=== PATIENT | female | born 1970 | race Caucasian/White ===

== ENCOUNTER → 2019-12-09 11:24 | Outpatient (BNVA) | payer OTHER, SELFPAY | PROVIDERS: Family Provider Nurse Practitioner Family; PCP Nurse Practitioner Family; Visit Provider Registered Nurse | DX: I10 Essential (primary) hypertension (principal); E78.5 Hyperlipidemia, unspecified; E66.9 Obesity, unspecified | CPT/HCPCS: 80053; 80061; 84443; 85025 ==

== ENCOUNTER 2019-12-22 14:47 | Outpatient (CLI) | payer OTHER, SELFPAY ==
--- NOTE | 2019-12-22 14:56 | MM_ITS ---
WS: [id number] BILATERAL DIGITAL SCREENING MAMMOGRAPHY WITH CAD CLINICAL INFORMATION: SCREENING HISTORY: Screening mammogram. No current complaints. COMPARISON: TECHNIQUE: Bilateral CC and MLO views. FINDINGS: Scattered fibroglandular densities bilaterally. No suspicious focal mass, asymmetry, calcifications, or architectural distortion. No evidence of malignancy. MM/[place] [id number] IMPRESSION: BI-RADS: 1-Negative FOLLOW UP: 1 Year Follow-up Recommend return to annual screening mammography.
== END 2019-12-22 14:48 | disposition home or self-care (01) ==
LOC: RADSHAW 14:52
PROVIDERS: PCP Registered Nurse; Visit Provider Nurse Practitioner Women's Health
DX: Z12.31 Encounter for screening mammogram for malignant neoplasm of breast (principal)
CPT/HCPCS: 77067

== ENCOUNTER 2019-12-29 08:43 | Day surgery (SDC) | payer OTHER, SELFPAY ==
[2019-12-25 09:33] VITALS: BMI 38.2
[2019-12-29 08:57] VITALS: BP 126/88; PULSE 88; RESP 18; TEMP 36; O2SAT 98
--- NOTE | 2019-12-29 09:03 | P.ANESASSM_ITS ---
Pre-Anesthetic Assessment Pre-Anesthetic Assessment: Height/Weight: Height 1.73 m Weight 114.305 kg Preop Diagnosis: screening Proposed Procedure: Operation Date: 12/29/19 09:45 Proposed Procedures p Colonoscopy 91938 Z12.11(Not Applicable) - John Liz MD Familial anesthetic complications: none Was Beta Dar taken within 24 hours: N/A Social: Social History: No alcohol and No tobacco Exam: Pre-Anes Outpt Exam: alert, oriented x 3, clear to auscultation bilaterally and regular rate & rhythm Airway: Submandibular: WNL Cervical ROM: WNL MP: 2 Dentition: Full Pulmonary: Pulmonary: Asthma ( mild ) CV/HEM: CV/HEM: HTN : : None reported Hepatic: Hepatic: None reported GI: GI: None reported Metabolic: Metabolic: Hyperlipidemia and Morbid obesity Musc/skel: Musc/skel: None reported Neuropsych: Neuropsych: None reported Anesthetic Plan: ASA status: 2 Anesthesia: MAC Risk of > 500 ml blood loss (7ml/kg in children): No PFSH Anesthesia PFSH: Medical History Hypertension, benign Menorrhagia with regular cycle - She has done very well with OCP therapy but due to her obesity and hypertensi on and age I do feel this time to come off the estrogen containing contraception and trial a progesterone only method. She is agreeable to this plan today. Mild intermittent asthma in adult without complication Surgical History History of laparoscopy (~1990) looking for endometriosis. Nothing was found to be abnormal. Previous section (~10/02/06) Family History Father CAD (coronary artery disease) Mother Cancer Breast cancer; dx'd at 71 y/o Grandfather Diabetes Paternal and Maternal Grandmother Stroke Paternal and Maternal Denies family history of Hyperlipidemia Hypertension Social History (Updated 12/24/19 @ 11:[address]) Smoking and tobacco status: never smoked Alcohol intake: never History of recent travel: No Female Reproductive History: Date of last menstrual period: 06/14/19 Data Anesthesia Cardiac Studies: No Data to Display
[2019-12-29 09:08] LABS: OR HCG Qualitative Urine Negative (Negative)
[2019-12-29] MEDS: sodium chloride 0.9% 1,000 ML 30 ML IV (09:10)
[2019-12-29 10:07] VITALS: BP 102/71; PULSE 89; RESP 16; TEMP 36.9; O2SAT 95
--- NOTE | 2019-12-29 10:07 | ANE.PACU2 ---
Inpatient post-anesthesia follow up: Airway intact: Yes Vital signs: Temperature 96.8 F Pulse Rate 88 Respiratory Rate 18 Blood Pressure 126/88 Pulse Oximetry 98 Oxygen Delivery Me thod Room Air Oxygen Flow Rate Fraction of Inspir ed Oxygen Hydration adequate: Yes Nausea and vomiting: No Pain level: 1 Mental status: Baseline
[2019-12-29 10:30] VITALS: BP 120/73; PULSE 90; RESP 18; O2SAT 96
--- NOTE | 2020-01-08 12:35 | W.PM.OPSFHP ---
Same Day Surgery H&P Indication for Procedure/HPI DATE OF PROCEDURE: January 08, 2020 CHIEF COMPLAINT/INDICATIONFOR SURGICAL PROCEDURE: Abdominal pain PREOP DIAGNOSIS: screening PLANNED PROCEDRUE: Operation Date: 12/29/19 09:45 Proposed Procedures p Colonoscopy 48495 Z12.11(Not Applicable) - John Liz MD Medications/Allergies* Home Medications Medication Instructions Recorded Confirmed Type albuterol sulfate 90 mcg/actuation 2 inh INHALATION QID 06/20/19 12/25/19 History breath activated powder inhaler fluticasone 250 mcg-salmeterol 50 1 inh INHALATION BID 06/20/19 12/25/19 History mcg/dose blistr powdr for inhalation levonorgestrel 20 mcg/24 hours (5 1 device INTRAUTERI .continuous 06/20/19 12/25/19 History yrs) 52 mg intrauterine device each montelukast 10 mg tablet 10 mg PO QDAY 06/20/19 12/25/19 History Allergies/Adverse Reactions Allergy/AdvReac Type Severity Reaction Status Date / Time No Known Allergies Allergy Verified 12/24/19 11:35 Pertinent History/Comorbid Conditions* Medical History (Updated 12/10/19 @ 08:17 by SAMSON Andre) Hypertension, benign Menorrhagia with regular cycle - She has done very well with OCP therapy but due to her obesity and hypertension and age I do feel this time to come off the estrogen containing contraception and trial a progesterone only method. She is agreeable to this plan today. Mild intermittent asthma in adult without complication Surgical History (Updated 06/25/19 @ 09:44 by Shantell Gabriel APN, HEATHER) History of laparoscopy (~1990) looking for endometriosis. Nothing was found to be abnormal. Previous section (~10/02/06) Family History (Updated 06/25/19 @ 09:44 by Shantell Gabriel APN, HEATHER) Diabetes Grandfather Paternal and Maternal CAD (coronary artery disease) Father Cancer Mother Breast cancer; dx'd at 71 y/o Stroke Grandmother Paternal and Maternal Denies family history of Hyperlipidemia Hypertension Social History Smoking and tobacco status: never smoked Alcohol intake: never History of recent travel: No Pertinent Exam Findings alert, oriented x 3, clear to auscultation bilaterally, regular rate & rhythm, operative site marked and procedure specific exam findings Recommendations Surgery/Procedure today Coding Level of Care Code Acute Analysis Internship for Michael Grissom
== END 2019-12-29 10:35 | disposition home or self-care (01) ==
PROVIDERS: PCP Registered Nurse; Visit Provider Internal Medicine
PROC: 0DJD8ZZ Inspection of Lower Intestinal Tract, Via Natural or Artificial Opening Endoscopic (ICD-10-PCS; CPT 45378; principal; 2019-12-29 09:45)
DX: Z12.11 Encounter for screening for malignant neoplasm of colon (principal); D12.5 Benign neoplasm of sigmoid colon; I10 Essential (primary) hypertension; Z82.49 Family history of ischemic heart disease and other diseases of the circulatory system; Z83.3 Family history of diabetes mellitus; Z80.3 Family history of malignant neoplasm of breast; E78.5 Hyperlipidemia, unspecified; E66.01 Morbid (severe) obesity due to excess calories; Z68.38 Body mass index [BMI] 38.0-38.9, adult
CPT/HCPCS: 12345; 45385; 84703; 88305; J2704; J7030

== ENCOUNTER → 2020-11-23 09:55 | Outpatient (BNVA) | payer OTHER, BC, SELFPAY | PROVIDERS: PCP Registered Nurse; Visit Provider Registered Nurse | DX: I10 Essential (primary) hypertension (principal); E66.9 Obesity, unspecified | CPT/HCPCS: 80053; 80061; 84443; 85025 ==

== ENCOUNTER 2021-01-21 14:03 | Outpatient (CLI) | payer BC, OTHER, SELFPAY ==
--- NOTE | 2021-01-21 14:14 | MM_ITS ---
WS: [id number] BILATERAL SCREENING DIGITAL MAMMOGRAM WITH CAD HISTORY: SCREENING COMPARISON: 12/22/2019 and 09/29/2015 Bilateral CC and MLO views submitted. Computer aided detection analyzed. Breast composition: There are scattered areas of fibroglandular density. No suspicious masses, microc alcifications or architectural distortion. Benign intramammary lymph nodes RIGHT breast. MM/[place] [id number] IMPRESSION: BI-RADS: 2-Benign FOLLOW UP: 1 Year Follow-up
== END 2021-01-21 14:04 | disposition home or self-care (01) ==
LOC: RADSHAW 14:11
PROVIDERS: PCP Registered Nurse; Visit Provider Nurse Practitioner Women's Health
DX: Z12.31 Encounter for screening mammogram for malignant neoplasm of breast (principal)
CPT/HCPCS: 77067

== ENCOUNTER → 2022-01-19 13:17 | Outpatient (BNVA) | payer BC, OTHER, SELFPAY | PROVIDERS: PCP Registered Nurse; Visit Provider Nurse Practitioner Family | DX: L98.9 Disorder of the skin and subcutaneous tissue, unspecified (principal) | CPT/HCPCS: 88304; 88305 ==

== ENCOUNTER → 2022-03-21 09:56 | Outpatient (BNVA) | payer BC, OTHER, SELFPAY | PROVIDERS: PCP Registered Nurse; Visit Provider Registered Nurse | DX: I10 Essential (primary) hypertension (principal); Z12.31 Encounter for screening mammogram for malignant neoplasm of breast; Z23 Encounter for immunization; Z71.85 Encounter for immunization safety counseling; Z00.00 Encounter for general adult medical examination without abnormal findings; E78.5 Hyperlipidemia, unspecified | CPT/HCPCS: 80053; 80061; 85025 ==

== ENCOUNTER 2022-04-05 10:35 | Outpatient (CLI) | payer BC, OTHER, SELFPAY ==
--- NOTE | 2022-04-05 10:40 | MM_ITS ---
WS: [id number] . BILATERAL SCREENING DIGITAL TOMOSYNTHESIS MAMMOGRAM WITH CAD HISTORY: Z12.31 - Encounter for screening mammogram for malignant ... COMPARISON: 01/21/2021 and 12/22/2019 Bilateral CC and MLO views with tomosynthesis and synthetic mammography submitted. Computer aided det ection analyzed. Breast composition: There are scattered areas of fibroglandular density. No suspicious masses, microc alcifications or architectural distortion. MM/[place] [id number] IMPRESSION: BI-RADS: 1-Negative FOLLOW UP: 1 Year Follow-up
== END 2022-04-05 10:36 | disposition home or self-care (01) ==
LOC: RAD 10:36
PROVIDERS: PCP Registered Nurse; Visit Provider Registered Nurse
DX: Z12.31 Encounter for screening mammogram for malignant neoplasm of breast (principal)
CPT/HCPCS: 77063; 77067

== ENCOUNTER → 2022-06-06 13:50 | Outpatient (BNVA) | payer BC, OTHER, SELFPAY | PROVIDERS: PCP Registered Nurse; Visit Provider Nurse Practitioner Women's Health | DX: Z12.4 Encounter for screening for malignant neoplasm of cervix (principal); Z01.419 Encounter for gynecological examination (general) (routine) without abnormal findings; Z30.431 Encounter for routine checking of intrauterine contraceptive device; N92.0 Excessive and frequent menstruation with regular cycle | CPT/HCPCS: 87624 ==

== ENCOUNTER → 2022-06-20 13:47 | Outpatient (BNVA) | payer BC, OTHER, SELFPAY | PROVIDERS: PCP Registered Nurse; Visit Provider Nurse Practitioner Women's Health | DX: Z30.431 Encounter for routine checking of intrauterine contraceptive device (principal) | CPT/HCPCS: 76830 ==

== ENCOUNTER 2023-01-15 15:43 | Outpatient (CLI) | payer BC, OTHER, SELFPAY ==
--- NOTE | 2023-01-15 16:06 | XR_ITS ---
WS: [id number] EXAMINATION: XR KUB [id number] REASON FOR EXAM: R10.11 - Right upper quadrant pain COMPARISON: None available. ORDER DATE: 01/15/2023 4:10 PM FINDINGS: There is a nonspecific colonic gas pattern with scattered fecal content and gas. There is no sign of significant small bowel dilation. No pathologic abdominal calcification is seen. An IUD is noted in the mid pelvic cavity suggested to be in satisfactory position IMPRESSION: No acute change
[2023-01-15 16:43] LABS: Basophils % 0.3 %; Eosinophils # 0.2 10^3/uL (0.0-0.8); Eosinophils % 1.6 %; Hematocrit 42.6 % (37.0-47.0); Hemoglobin 13.8 g/dL (11.5-15.3); Lymphocytes # 2.8 10^3/uL (0.8-4.8); Lymphocytes % 30.4 %; Mean Corpuscular HGB Conc 32.4 g/dL (30.0-36.0); Mean Corpuscular Hemoglobin 27.7 pg (28.0-34.0); Mean Corpuscular Volume 85.4 fl (81-99); Mean Platelet Volume 10.4 fL (7.4-10.4); Monocytes # 0.8 10^3/uL (0.2-0.9); Monocytes % 8.2 %; Neutrophils # 5.44 10^3/uL (1.8-7.7); Neutrophils % 59.2 %; Nucleated Red Blood Cells % 0 %; Platelet Count 341 10^3/cmm (130-400); Red Blood Count 4.99 10^6/uL (4.1-5.3); Red Cell Distribution Width 12.9 % (12.1-15.1); White Blood Count 9.2 10^3/uL (4.0-10.0)
[2023-01-15 17:52] LABS: C Reactive Protein 3.5 mg/L (0.0-4.9)
== END 2023-01-15 15:44 | disposition home or self-care (01) ==
LOC: LAB 15:48
PROVIDERS: PCP Registered Nurse; Visit Provider Registered Nurse
DX: R10.11 Right upper quadrant pain (principal)
CPT/HCPCS: 36415; 74018; 81000; 85025; 86140

== ENCOUNTER → 2023-03-21 09:11 | Outpatient (BNVA) | payer BC, OTHER, SELFPAY | PROVIDERS: PCP Registered Nurse; Visit Provider Registered Nurse | DX: E66.9 Obesity, unspecified; I10 Essential (primary) hypertension; Z00.00 Encounter for general adult medical examination without abnormal findings; Z13.6 Encounter for screening for cardiovascular disorders | CPT/HCPCS: 80053; 80061; 84443; 85025 ==

== ENCOUNTER → 2023-03-28 08:45 | Outpatient (BNVA) | payer BC, OTHER, SELFPAY | PROVIDERS: PCP Registered Nurse; Visit Provider Registered Nurse | DX: R73.9 Hyperglycemia, unspecified (principal) | CPT/HCPCS: 83036 ==

== ENCOUNTER 2023-04-12 10:17 | Outpatient (CLI) | payer BC, OTHER, SELFPAY ==
--- NOTE | 2023-04-12 10:00 | MM_ITS ---
WS: [id number] BILATERAL SCREENING DIGITAL TOMOSYNTHESIS MAMMOGRAM WITH CAD HISTORY: SCREENING COMPARISON: 04/05/2022 and 01/21/2021 Bilateral CC and MLO views with tomosynthesis and synthetic mammography submitted. Computer aided det ection analyzed. Breast composition: There are scattered areas of fibroglandular density. No suspicious masses, microc alcifications or architectural distortion. IMPRESSION: MM/[place] [id number] BI-RADS: 1-Negative FOLLOW UP: 1 Year Follow-up
== END 2023-04-12 10:18 | disposition home or self-care (01) ==
LOC: MOBLMAM 10:27
PROVIDERS: PCP Registered Nurse; Visit Provider Registered Nurse
DX: Z12.31 Encounter for screening mammogram for malignant neoplasm of breast (principal)
CPT/HCPCS: 77063; 77067

== ENCOUNTER → 2023-06-22 16:36 | Outpatient (BNVA) | payer BC, OTHER, SELFPAY | PROVIDERS: PCP Registered Nurse; Visit Provider Nurse Practitioner Women's Health | DX: N91.2 Amenorrhea, unspecified (principal) | CPT/HCPCS: 82670; 83001 ==

== ENCOUNTER → 2024-04-08 10:59 | Outpatient (BNVA) | payer OTHER, SELFPAY | PROVIDERS: PCP Registered Nurse; Visit Provider Registered Nurse | DX: Z13.6 Encounter for screening for cardiovascular disorders (principal); Z13.1 Encounter for screening for diabetes mellitus; Z00.00 Encounter for general adult medical examination without abnormal findings | CPT/HCPCS: 80053; 80061; 83036; 85025 ==

== ENCOUNTER 2024-04-23 13:51 | Outpatient (CLI) | payer OTHER, SELFPAY ==
--- NOTE | 2024-04-23 13:57 | XRR_ITS ---
PROCEDURE INFORMATION: Exam: XR Right Knee Exam date and time: 04/23/2024 2:05 PM Age: 53 years old Clinical indication: Pain; Knee; Right; Additional info: M17.11 - unilateral primary osteoarthritis, right knee TECHNIQUE: Imaging protocol: Radiologic exam of the right knee. Views: 3 views. COMPARISON: No relevant prior studies available. FINDINGS: Bones/joints: Mild osteoarthritis of the patellofemoral joint. No acute fracture, dislocation, or aggressive osseous lesion. Soft tissues: No significant soft tissue swelling. XR/XR knee RT 3V* [id number] IMPRESSION: Mild osteoarthritis of the patellofemoral joint.
== END 2024-04-23 13:52 | disposition home or self-care (01) ==
LOC: RAD 13:53
PROVIDERS: PCP Registered Nurse; Visit Provider Registered Nurse
DX: M17.11 Unilateral primary osteoarthritis, right knee (principal)
CPT/HCPCS: 73562

== ENCOUNTER 2024-05-07 10:20 | Outpatient (CLI) | payer OTHER, SELFPAY ==
--- NOTE | 2024-05-07 10:20 | MM_ITS ---
WS: [id number] VIEWS: MLO and CC views both breasts. 3D digital tomosynthesis is also included in this exam. Comparison made with prior exam of 12/22/2019, 02/18/2009, 09/17/2014, 09/29/2015, 11/08/2018, 01/21/2021, 1 06/12/2022. Findings: There are scattered areas of fibroglandular density. No mass, tumor calcification or architectural distortion. MM/MM scr BI tomosynthesis [id number] Impression: BI-RADS: 2 - Benign. FOLLOW-UP: 1 Year Follow-up This mammogram was also analyzed by the Computer Aided Detection System [employer].
== END 2024-05-07 10:21 | disposition home or self-care (01) ==
PROVIDERS: PCP Registered Nurse; Visit Provider Registered Nurse
DX: Z12.31 Encounter for screening mammogram for malignant neoplasm of breast (principal); R92.323 Mammographic fibroglandular density, bilateral breasts
CPT/HCPCS: 77063; 77067

== ENCOUNTER → 2024-06-24 16:18 | Outpatient (BNVA) | payer OTHER, SELFPAY | PROVIDERS: PCP Registered Nurse; Visit Provider Nurse Practitioner Women's Health | DX: N91.2 Amenorrhea, unspecified (principal) | CPT/HCPCS: 82670; 83001 ==

== ENCOUNTER → 2024-08-18 14:02 | Outpatient (BNVA) | payer OTHER, SELFPAY | PROVIDERS: PCP Registered Nurse; Visit Provider Registered Nurse | DX: N91.2 Amenorrhea, unspecified (principal) | CPT/HCPCS: 82670; 83001 ==

== ENCOUNTER → 2024-11-06 15:27 | Outpatient (BNVA) | payer OTHER, SELFPAY | PROVIDERS: PCP Registered Nurse; Visit Provider Nurse Practitioner Women's Health | DX: N85.9 Noninflammatory disorder of uterus, unspecified (principal) | CPT/HCPCS: 76830; 76856 ==

== ENCOUNTER → 2024-12-26 10:56 | Outpatient (BNVA) | payer OTHER, SELFPAY | PROVIDERS: PCP Registered Nurse; Visit Provider Nurse Practitioner Women's Health | DX: N95.0 Postmenopausal bleeding (principal) | CPT/HCPCS: 81025; 88305 ==

== ENCOUNTER 2025-02-10 08:05 | Outpatient (CLI) | payer OTHER, SELFPAY ==
--- NOTE | 2025-02-10 08:00 | US_ITS ---
WS: [id number] US transvaginal [id number] HISTORY: N95.0 - Postmenopausal bleeding COMPARISON: 11/06/2024 Uterus: 6.7 cm x 4.6 cm x 4.3 cm. Normal size anteverted uterus. No fibroid or mass. Endometrium: 0.6 cm. Limited evaluation and visualization of the endometrium. Endometrium is measuring enlarged for postmenopausal patient. No mass identified. Neither ovary is identified. No adnexal mass. No free fluid. US/US transvaginal [id number] IMPRESSION: 1. Endometrium measuring larger than normal for postmenopausal patient with bl eeding. Recommend direct visualization and biopsy. Endometrium is similar in ap pearance to the prior study from 11/06/2024. 2. No adnexal mass identified. Neither ovary is visualized.
== END 2025-02-10 08:06 | disposition home or self-care (01) ==
LOC: RAD 08:06
PROVIDERS: PCP Registered Nurse; Visit Provider Nurse Practitioner Women's Health
DX: N95.0 Postmenopausal bleeding (principal)
CPT/HCPCS: 76830